=== PATIENT | male | born 1950 | race Caucasian/White ===

== ENCOUNTER 2016-10-10 09:19 | Outpatient (CLI) | payer MEDICARE, OTHER ==
[2016-10-10 09:41] LABS: BASOPHILS % 0.1 (0.0-1.5); EOSINOPHILS % 2.2 % (0.0-6.8); LYMPHOCYTES # 1.7 # k/uL (0.6-4.0); MEAN CORPUSCULAR HEMOGLOBIN 34.9 pg (28.0-34.0); MONOCYTES # 0.4 # k/uL (0.0-0.9); MONOCYTES % 5.6 % (0.0-11.0); NEUTROPHILS # 5.1 # k/uL (1.4-7.7)
--- NOTE | 2016-10-10 18:13 | Diagnostic Imaging Report ---
KRISTY VERDIN [facility] [address] [facility] [address] 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 Partially occlusive thrombus is present in the proximal femoral to mid femoral vein, beyond which there is mild eccentric thrombus in the distal femoral, popliteal, and posterior tibial veins. IMPRESSION: Deep venous thrombosis in right femoral, popliteal, and posterior tibial veins, possibly subacute or early chronic distally. Electronically signed on Oct 10, 2016 1:32:37 PM OXYGEN EQUIPMENT PREPARER by: Denis JAIN
== END 2016-10-10 09:20 ==
LOC: LAB 09:19
PROVIDERS: ATTEND Family Medicine
DX: I82.401 Acute embolism and thrombosis of unspecified deep veins of right lower extremity (principal); E53.8 Deficiency of other specified B group vitamins
CPT/HCPCS: 36415; 85025; 93971

== ENCOUNTER 2018-01-02 11:14 | Outpatient (CLI) | payer OTHER ==
[2018-01-02 12:01] LABS: eGFR (African) > 60; eGFR (Non-African) > 60
== END 2018-01-02 11:15 ==
LOC: LAB 11:14
PROVIDERS: ATTEND Family Medicine
DX: I10 Essential (primary) hypertension (principal); E55.9 Vitamin D deficiency, unspecified
CPT/HCPCS: 36415; 80053; 82306

== ENCOUNTER 2018-10-22 10:52 | Outpatient (CLI) | payer OTHER ==
--- NOTE | 2018-10-23 15:12 | OP Clinic Progress Note ---
SUBJECTIVE: Kinza Yañez is a 68-year-old male who presents today for follow-up of a corn on the left fourth toe on the lateral side at the PIPJ. The patient states this has begun hurting him again and he took a blade himself and trimmed off some of the callus and it has felt a little better but still needs help getting it to feel even better at this point. The patient states that he has not had any other concerns or issues and that he would like to consider surgery once the weather is warmer to fix the hammertoe. The patient denies any other fever, chills, nausea, vomiting, shortness of breath or chest pain at this time. OBJECTIVE: Vitals: Temperature 99.1 degrees Fahrenheit, heart rate 67, respiration rate 18, blood pressure 115/76, pain 3/10. Vascular: Pulses 2+ DP and PT, left foot. Capillary refill time is less than 3 seconds to the toes of the left foot. There is no edema, left foot. Dermatologic: There is mild hyperkeratosis noted on the lateral side of the PIPJ of the left fourth toe. There is no callus on the fifth toe. There is no erythema or open wound noted, left foot. There are no signs of infection. Musculoskeletal: There is pain upon palpation noted at the site of the callus on the left fourth toe. There is also mild digital contracture of the left fourth toe and adductovarus deformity of the left fifth toe. There are no other gross abnormalities noted at this time. Neurologic: Light touch sensation is intact to the toes, left foot. ASSESSMENT AND PLAN: 1. Heloma molle. 2. Hammertoe, left foot. PROCEDURE #1: The heloma molle was debrided with a #15 blade to intact epithelium at the left fourth toe lateral PIPJ area. The patient tolerated the procedure well. The patient was happy with the treatment today. 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 We will give him those later on today. He will use that on his fourth or fifth toe. The patient and I discussed possible surgical correction with either a fourth PIPJ arthroplasty and/or fifth PIPJ arthroplasty depending upon x-rays that we can obtain once he decides to consider surgery. We likely would need to consider possible arterial Dopplers just to verify blood flow is good coming down as his toes definitely are cooler to the touch overall. He does have palpable pulses, though. Return to the clinic in 3 months or sooner as needed for callus trimming. Monserrat Rankin.P.M. (Dictated/Not Signed) Akash Job#: [id number] MTDD
== END 2018-10-22 10:54 ==
LOC: POD 10:52
PROVIDERS: ATTEND Podiatrist Foot & Ankle Surgery
DX: L84 Corns and callosities (principal); M20.42 Other hammer toe(s) (acquired), left foot
CPT/HCPCS: 11055

== ENCOUNTER 2019-06-02 11:19 | Outpatient (CLI) | payer OTHER ==
[2019-06-10 10:10] LABS: BASOPHILS % 0.6 % (0.0-1.5); HDL 42 mg/dL (>40); eGFR (Non-African) > 60
== END 2019-06-02 11:24 | disposition home or self-care (01) ==
LOC: LAB 11:19
PROVIDERS: ATTEND Family Medicine
DX: E78.5 Hyperlipidemia, unspecified (principal); R53.83 Other fatigue
CPT/HCPCS: 36415; 80053; 80061; 82306; 82607; 85025